=== PATIENT | female | born 1955 | race Asian ===

== ENCOUNTER 2021-02-11 10:14 | Outpatient (CLI) | payer OTHER | END 2021-02-11 23:59 | disposition home or self-care (01) | LOC: CFH 10:14 | PROVIDERS: ATTEND Nurse Practitioner Family | DX: Z13.228 Encounter for screening for other metabolic disorders (principal); Z00.00 Encounter for general adult medical examination without abnormal findings; M81.0 Age-related osteoporosis without current pathological fracture; I10 Essential (primary) hypertension | CPT/HCPCS: 77080 ==